=== PATIENT | female | born 1980 | race Two or more races ===

== ENCOUNTER 2018-10-26 05:39 | Emergency (ER) | payer MEDICAID ==
[~2018-10-26] VITALS: Ht 172.7 cm; Wt 113.0 kg
[2018-10-26] MEDS ORDERED: METOCLOPRAMIDE 5 MG/ML, 2ML IVPush ONE (06:00)
[2018-10-26] MEDS ORDERED: DIPHENHYDRAMINE 50 MG/ML, 1ML IVPush ONE (06:00)
[2018-10-26] MEDS ORDERED: METOCLOPRAMIDE 5 MG/ML, 2ML ONE (06:02)
[2018-10-26] MEDS ORDERED: DIPHENHYDRAMINE 50 MG/ML, 1ML ONE (06:02)
[2018-10-26] MEDS ORDERED: HALOPERIDOL 5 MG/ML ONE (06:22)
[2018-10-26] MEDS ORDERED: HALOPERIDOL 5 MG/ML IM ONE (06:30)
[2018-10-26 06:38] LABS: BASOPHILS # (AUTO) 0.04 x10^3/uL (0-0.1); BASOPHILS % (AUTO) 1 % (0-1); EOSINOPHILS # (AUTO) 0.06 x10^3/uL (0-0.4); EOSINOPHILS % (AUTO) 1 % (1-7); LYMPHOCYTES # (AUTO) 1.13 x10^3/uL (1-3.4); LYMPHOCYTES % (AUTO) 12 % (22-44); MD NO; MEAN CORPUSCULAR HEMOGLOBIN 29.1 pg (27.0-34.8); MEAN CORPUSCULAR HGB CONC 34.2 g/dL (32.4-35.8); MEAN CORPUSCULAR VOLUME 85.1 fL (80-100); MEAN PLATELET VOLUME 8.9 fL (7.4-10.4); MONOCYTES # (AUTO) 0.21 x10^3/uL (0.2-0.8); MONOCYTES % (AUTO) 2 % (2-9); NEUTROPHILS # (AUTO) 7.75 x10^3/uL (1.8-6.8); NEUTROPHILS % (AUTO) 84 % (42-75); PLATELET COUNT 301 x10^3/uL (130-400); RED BLOOD COUNT 4.99 x10^6/uL (3.82-5.3)
[2018-10-26 06:47] LABS: ALBUMIN 3.8 g/dL (3.4-5.0); ANION GAP 12 mmol/L (5-15); CALCIUM 8.4 mg/dL (8.5-10.1); CHLORIDE 108 mmol/L (98-107)
[2018-10-26 06:53] LABS: ALANINE AMINOTRANSFERASE 27 U/L (12-78); ALKALINE PHOSPHATASE 99 U/L (45-117); BILIRUBIN,TOTAL 0.5 mg/dL (0.2-1.0); CREATININE 0.77 mg/dL (0.55-1.02); TOTAL PROTEIN 7.6 g/dL (6.4-8.2)
[2018-10-26] MEDS ORDERED: PROCHLORPERAZINE 5 MG/ML, 2ML ONE (06:59)
[2018-10-26] MEDS ORDERED: PROCHLORPERAZINE 5 MG/ML, 2ML IVPush ONE (07:00)
[2018-10-26] MEDS ORDERED: KETOROLAC 30 MG/1 ML IVPush ONE (08:00)
[2018-10-26] MEDS ORDERED: KETOROLAC 30 MG/1 ML ONE (08:06)
[2018-10-26 08:15] VITALS: BP 150/84
== END 2018-10-26 09:09 | disposition home or self-care (01) ==
LOC: ED 06:24
DX: G43.A0 Cyclical vomiting, in migraine, not intractable (principal)
CPT/HCPCS: 36415; 80053; 83690; 84703; 85025; 96372; 96374; 96375; 99283; J0780; J1200; J1630; J1885; J2765